=== PATIENT | male | born 1970 | race Caucasian/White ===

== ENCOUNTER → 2023-11-10 17:46 | Outpatient (REF) | payer BC, SELFPAY | LOC: RAD 17:46 | PROVIDERS: ATTENDING PHYSICIAN Urology; FAMILY PHYSICIAN Family Medicine | DX: N40.1 Benign prostatic hyperplasia with lower urinary tract symptoms (principal); R39.15 Urgency of urination; R35.1 Nocturia | CPT/HCPCS: 76770 ==

== ENCOUNTER 2024-02-06 15:01 | Emergency (ER) | payer BC, SELFPAY ==
[2024-02-06 15:15] VITALS: BP 152/75
[2024-02-06] MEDS: VALIUM 5 MG PO (16:23)
[2024-02-06] MEDS: TYLENOL 1000 MG PO (16:23)
[2024-02-06] MEDS: TORADOL 30 MG IM (16:24)
[2024-02-06 17:37] VITALS: BP 143/83
--- NOTE | 2024-02-06 17:45 | ED.GENMED ---
History of Present Illness
General
Chief Complaint: Back Pain
Source: patient
Exam Limitations: none
Time Seen by Provider: 02/06/24 15:29
Nursing documentation reviewed up to this point in time: agreed with
History of Present Illness
History of Present Illness:
53-year-old male presenting to the emergency department today with concerns of low back pain denies any specific injury but was in a pool yesterday was jumping and was very physical active. Denies specific injury woke up this morning with stiff
back pain made worse with movement. Denies any urinary changes nausea vomiting or fevers.
Past History
Past History
ED Past Medical History: HTN, Psychiatric (Depression) and Other (BPH)
ED Past Surgical History: Other (Hemorrhoidectomy, inguinal hernia repair)
Social History
Tobacco: Former smoker
Alcohol: Occasional
Drug: None
Personal:
Living: with family
Employment: Employed
Family History
Family History: Other (Grandfather with [place] brother with pancreatic cancer)
Review of Systems
Review of Systems
Allergies reviewed?: Yes
All Other Systems: ROS reviewed and negative except as documented in HPI and ROS
Phy Exam
Physical Exam
Physical Exam:
GENERAL: Alert , in no apparent distress
EYE: pupils equal and reactive
NECK: Supple, no significant adenopathy.
ENT: o/p clr, mmm.
CARDIAC: Regular rate and rhythm .
LUNGS: Clear breath sounds bilaterally, no acute respiratory distress, no wheezes/rales/rhonchi
ABDOMEN: Soft, without focal tenderness, no r/g, no cvat
NEUROLOGICAL: Alert and oriented, no focal neuro deficits
SKIN: Warm and dry, skin intact.
MUSCULOSKELETAL: Reproducible pain to the back with straight leg raise. No edema, well perfused.
PSYCH: Normal and appropriate interaction.
Course
Orders/Labs/Results
Orders:
Orders
02/06/24 15:18
Lumbar Spine Complete, 4 View [CR Lumbar Spine Comp Min 4 Vw*] Urgent
Comment:
Reason For Exam: pain
02/06/24 16:00
Acetaminophen [Tylenol] 1,000 mg PO NOW STA
Diazepam [Valium] 5 mg PO NOW STA
Ketorolac [Toradol] 30 mg IM NOW STA
Vital Signs
Initial and Last Documented VS:
Initial Vital Signs
Temp Pulse Resp BP Pulse Ox
98.2 F 77 16 152/75 98
02/06/24 15:15 02/06/24 15:15 02/06/24 15:15 02/06/24 15:15 02/06/24 15:15
Last Documented Vital Signs
Temp Pulse Resp BP Pulse Ox
98.2 F 55 18 143/83 98
02/06/24 15:15 02/06/24 17:37 02/06/24 17:37 02/06/24 17:37 02/06/24 17:37
MDM/Problems Addressed
MDM/Problems Addressed:
53-year-old male presenting to the emergency department today with concerns of low back pain. Denies any specific injury but was very physically active yesterday. Pain made worse with specific movements no neurologic symptoms does not appear to be
consistent with cauda equina no fever no signs or symptoms consistent with spinal epidural abscess no overlying skin changes. X-ray without signs of emergent injury patient with likely mechanical pain plan for symptomatic treatment return
precautions given.
*Critical Care Note
Total Time (30-74mins, 75-104mins- exclusive of procedures): Not Applicable
ED Attending Note
-
Portions of this chart may have been created with voice recognition software.� Occasional wrong word or��sound alike� substitutions may have occurred due to the inherent limitations of voice recognition software.
Discharge Plan
Departure
Patient Disposition: Home (Routine Discharge)
Date of Disposition: 02/06/24
Time of Disposition: 17:45
Patient with high blood pressure during this ER visit?: No
Condition: Good
Covid-19: Not Applicable
Discharge Problem:
Low back pain
Instructions: Low Back Pain (DC)
Prescriptions:
New
cyclobenzaprine 10 mg tablet
10 mg PO BID PRN (Reason: muscle spasm) Qty: 10 0RF
meloxicam 15 mg tablet
15 mg PO DAILY Qty: 14 0RF
No Action
lamotrigine 100 MG tablet
100 mg PO DAILY
aripiprazole 5 MG tablet
5 mg PO DAILY
Referrals:
Tate Krishnamurthy MD [Family Provider] -
Activity Restrictions/Additional Instructions:
You came to the emergency department today with concerns of back discomfort. You had an x-ray without signs of emergent bony injury. Please take the prescribed medications and engage in light activity until symptoms hopefully improve soon.
Otherwise follow-up close with the primary care doctor if symptoms are persisting. Return to the emergency department for any worsening, new or concerning symptoms.
Interventions
Interventions:
*Risk Screen - Suicide Last Done: 02/06/24 15:15
*General Assessment Last Done: 02/06/24 15:15
*Neglect/Abuse Screening Last Done: 02/06/24 15:15
ED- Fall Risk Assessment Last Done: 02/06/24 17:50
*ED COVID-19 Vaccine History Last Done: 02/06/24 16:50
*Nursing Disposition Last Done: 02/06/24 17:50
ED-Musculoskeletal Assessment Last Done: 02/06/24 16:50
Discharge Date and Time
Discharge Date/Time: 02/06/24 17:52
Print Language: [id number]
== END 2024-02-06 17:52 | disposition home or self-care (01) ==
LOC: EMR 15:01
PROVIDERS: EMERGENCY PHYSICIAN Emergency Medicine; FAMILY PHYSICIAN Family Medicine
DX: M54.50 Low back pain, unspecified (principal); I10 Essential (primary) hypertension; F32.A Depression, unspecified; N40.0 Benign prostatic hyperplasia without lower urinary tract symptoms; Z82.49 Family history of ischemic heart disease and other diseases of the circulatory system; Z87.891 Personal history of nicotine dependence
CPT/HCPCS: 99283; 96372; 72110

== ENCOUNTER → 2024-09-10 15:23 | Outpatient (REF) | payer BC, SELFPAY | LOC: HWRAD 15:23 | DX: Z87.891 Personal history of nicotine dependence (principal) | CPT/HCPCS: 71271 ==

== ENCOUNTER 2025-05-09 07:18 | Day surgery (SDC) | payer BC, SELFPAY | END 2025-05-09 10:56 | disposition home or self-care (01) | LOC: GI 07:18 | PROVIDERS: ATTENDING PHYSICIAN Internal Medicine Gastroenterology; FAMILY PHYSICIAN Student in an Organized Health Care Education/Training Program | DX: Z12.11 Encounter for screening for malignant neoplasm of colon (principal); Z86.0100 Personal history of colon polyps, unspecified; K64.8 Other hemorrhoids | CPT/HCPCS: G0105 ==